=== PATIENT | female | born 1990 | race Two or more races ===

== ENCOUNTER 2018-07-10 09:58 | Emergency (ER) | payer SELFPAY ==
[2018-07-10 10:13] VITALS: BP 121/77; PULSE 89; TEMP 98.2; BMI 21.2
--- NOTE | 2018-07-10 11:04 | PDOC ---
History of Present Illness - General Chief Complaint: Toothache Stated Complaint: TOOTHACHE Time Seen by Provider: 07/10/18 10:17 Past History - Past Medical History Allergies/Adverse Reactions: Allergies Allergy/AdvReac Type Severity Reaction Status Date / Time No Known Allergies Allergy Verified 07/10/18 10:09 Home Medications: Ambulatory Orders Amoxicillin - [Amoxicillin 500mg Capsule -] 500 mg PO BID #14 capsule 07/10/18 Ibuprofen 800 mg PO TID #30 tablet 07/10/18 Oxycodone HCl/Acetaminophen [Percocet 5-325 mg Tablet] 1 tab PO Q6H #10 tablet MDD 4 07/10/18 COPD: No - Immunization History Immunization Up to Date: Yes - Suicide/Smoking/Psychosocial Hx Smoking History: Never smoked Hx Alcohol Use: No Drug/Substance Use Hx: No Substance Use Type: None *Physical Exam - Vital Signs Last Vital Signs Temp Pulse Resp BP Pulse Ox 98.2 F 89 16 121/77 100 07/10/18 10:10 07/10/18 10:10 07/10/18 10:10 07/10/18 10:10 07/10/18 10:10 Medical Decision Making - Medical Decision Making 07/10/18 10:59 Pt is a 28 y/o F presenting for tooth pain. IStop shows no narcotic use. Reference number: [id number] *DC/Admit/Observation/Transfer Diagnosis at time of Disposition: Toothache - Discharge Dispostion Disposition: HOME Condition at time of disposition: Stable Decision to Admit order: No - Referrals - Patient Instructions Printed Discharge Instructions: DI for Tooth Decay, DI for Dental Pain Additional Instructions: You have dental decay and toothache. Please take the amoxicillin 500 mg twice a day for one week. Please take Motrin 800 mg every 8 hours as needed for pain. If you have breakthrough pain you may take 1 Percocet every [address] drink or drive after taking this medication as it may make you sleepy. Please follow up with dentistry as soon as possible. A referral is provided below. Return to the emergency department for fevers, worsening pain, or if you have any changes in your symptoms. [facility] Address: [place] [address] - Post Discharge Activity Forms/Work/School Notes: Back to Work
== END 2018-07-10 11:17 | disposition home or self-care (01) ==
LOC: JERFT 09:58
DX: K08.89 Other specified disorders of teeth and supporting structures (principal)
CPT/HCPCS: 99281-25